=== PATIENT | male | born 1960 | race Caucasian/White ===

== ENCOUNTER 2022-07-24 13:21 | Inpatient (IN) | payer MEDICAID ==
[~2022-07-24] VITALS: Ht 185.4 cm; Wt 102.4 kg
[2022-07-24] VITALS (8 sets, daily range): BP systolic 126–148; BP diastolic 63–83
[2022-07-24] MEDS ORDERED: diphenhydrAMINE 25mg capsule PO PRN (13:55)
[2022-07-24] MEDS ORDERED: LORazepam 0.5 MG tablet PO PRN (13:55)
[2022-07-24] MEDS ORDERED: ATOR-2 PO (15:08)
[2022-07-24] MEDS ORDERED: CLOP75TA34 PO (15:08)
[2022-07-24] MEDS ORDERED: ASPI-612 PO (15:08)
[2022-07-24] MEDS: normal saline 1,000 ML IV SCH ×2 (15:19→23:50)
[2022-07-24] MEDS ORDERED: LIDOcaine 1% 30ml preserv. free vial ONE (16:38)
[2022-07-24] MEDS ORDERED: heparin 1,000unit/ml 10ml vial 10 ML ONE (16:38)
[2022-07-24] MEDS ORDERED: heparin 1,000 UNITS/NS 500ml 500 ML ONE (16:39)
[2022-07-24] MEDS ORDERED: iohexol 350MG/ML 100ml bottle IV ONE (16:39)
[2022-07-24] MEDS ORDERED: fentaNYL/PF 50MCG/1 ML 2ML syringe ONE (18:48)
[2022-07-24] MEDS ORDERED: midazolam 1 mg/ML 2ml injection ONE (18:48)
[2022-07-24] MEDS ORDERED: atropine 0.1mg/ml 10ml syringe ONE ×2 (18:57→19:44)
--- NOTE | 2022-07-24 19:54 | NUR ---
Report given to Erika COLON. All questions answered.
[2022-07-24] MEDS ORDERED: HYDROcodone/acetaminophen 5mg/325mg tablet PO PRN (20:30)
[2022-07-24] MEDS ORDERED: HYDROcodone/acetaminophen 10/325mg tab PO PRN (20:30)
[2022-07-24] MEDS ORDERED: aspirin 81mg tab.chew PO ONE (20:30)
[2022-07-25 02:00] VITALS: BP 145/94
[2022-07-25 08:00] VITALS: BP 144/81
[2022-07-25] MEDS ORDERED: atorvastatin 20mg tablet PO SCH (08:00)
[2022-07-25] MEDS ORDERED: aspirin 81mg, enteric-coated 1 TAB TABLET.DR PO SCH (08:00)
[2022-07-25] MEDS ORDERED: clopidogrel 75mg tablet PO SCH (08:00)
[2022-07-25] MEDS: normal saline 1,000 ML IV SCH (10:20)
[2022-07-25 11:00] VITALS: BP 138/84
--- NOTE | 2022-07-25 12:38 | NUR ---
Patient stable for Dc home. Discussed after care instructions and patient verbalized understanding. IV access removed and dressing in place. Transport arranged for picker tender at 1300.
== END 2022-07-25 12:57 | disposition home or self-care (01) | DRG 182 ==
LOC: SSTAY O 13:21 → PCU 3S 20:00
PROVIDERS: ADMIT Student in an Organized Health Care Education/Training Program; ATTEND Student in an Organized Health Care Education/Training Program
PROC: 047K3DZ Dilation of Right Femoral Artery with Intraluminal Device, Percutaneous Approach (ICD-10-PCS; principal; 2022-07-24)
PROC: B41D1ZZ Fluoroscopy of Aorta and Bilateral Lower Extremity Arteries using Low Osmolar Contrast (ICD-10-PCS; 2022-07-24)
DX: I70.213 Atherosclerosis of native arteries of extremities with intermittent claudication, bilateral legs (principal); E78.5 Hyperlipidemia, unspecified; Z79.899 Other long term (current) drug therapy; Z79.82 Long term (current) use of aspirin
CPT/HCPCS: 37226; 75630; 93005; 99152; 99153; A4620; A6258; C1725; C1760; C1769; C1876; C1894; G0378; J0461; J1644; J2250; J3010; J3490; J7030; Q0163; Q9967

== ENCOUNTER 2022-07-27 11:36 | Emergency (ER) | payer MEDICAID ==
[~2022-07-27] VITALS: Ht 185.4 cm; Wt 102.3 kg
[~2022-07-27 11:36] MED LIST: ASPI-612 PO; ATOR-2 PO; CLOP75TA34 PO
[2022-07-27 12:04] VITALS: BP 146/99
[2022-07-27] MEDS ORDERED: methadone 10mg tablet PO ONE (14:10)
== END 2022-07-27 14:46 | disposition home or self-care (01) ==
LOC: ER 11:36
DX: L76.22 Postprocedural hemorrhage of skin and subcutaneous tissue following other procedure (principal); Z79.82 Long term (current) use of aspirin
CPT/HCPCS: 99284

== ENCOUNTER 2022-11-27 13:24 | Day surgery (SDC) | payer MEDICAID ==
[2022-11-27] VITALS (9 sets, daily range): BP systolic 121–140; BP diastolic 68–82
[~2022-11-27] VITALS: Ht 185.4 cm; Wt 101.0 kg
[2022-11-27] MEDS ORDERED: normal saline 1,000 ML IV SCH (13:55)
[2022-11-27] MEDS ORDERED: LORazepam 0.5 MG tablet PO PRN (13:55)
[2022-11-27] MEDS ORDERED: diphenhydrAMINE 25mg capsule PO PRN (13:55)
[2022-11-27] MEDS ORDERED: heparin 1,000 UNITS/NS 500ml 500 ML ONE (18:12)
[2022-11-27] MEDS ORDERED: heparin 1,000unit/ml 10ml vial 10 ML ONE (18:12)
[2022-11-27] MEDS ORDERED: iohexol 350MG/ML 100ml bottle IV ONE (18:12)
[2022-11-27] MEDS ORDERED: LIDOcaine 1% 30ml preserv. free vial ONE (18:13)
[2022-11-27] MEDS ORDERED: midazolam 1 mg/ML 2ml injection ONE ×2 (19:20→19:49)
[2022-11-27] MEDS ORDERED: fentaNYL/PF 50MCG/1 ML 2ML syringe ONE (19:20)
[2022-11-27] MEDS ORDERED: clopidogrel 300mg tablet ONE (20:10)
--- NOTE | 2022-11-27 20:46 | NUR ---
2030 Received pt from [facility], Pt is alert and oriented, Reviewed that pt can sit up at 2130, start walking at 2145, if no hematoma or changes in vs pt may be discharged home, Pts son will pick him up, Follow up with Dr. Krishna on 12/26/22 at 0930. assessment complete.
--- NOTE | 2022-11-27 21:06 | NUR ---
Pt is alert and oriented, speech clear, thought process clear, hand support group manager equile in strength and quality. Distal pulses as charted.
--- NOTE | 2022-11-27 22:40 | NUR ---
pt sitting up in bed no hematoma, no changes in pulses, vs stable denies feelings of dizziness, SOB, numbness or tingling.
--- NOTE | 2022-11-27 23:12 | NUR ---
pt up ambulating in his room without difficulties, no changes in sheath sight , no numbness tingling or sob. discharge instructions given along with follow up care and appointment dates. pt dressed, PIV dc tip intact, Son Karthik here pt taken to pickup via W/C clothing and cell phone taken with pt.
== END 2022-11-27 23:21 | disposition home or self-care (01) ==
LOC: SSTAY O 13:24 → CICU 2S 21:03 → UNDOADMOB 21:03 → UNDODISOB 23:21 → SSTAY O 23:21
PROVIDERS: ATTEND Student in an Organized Health Care Education/Training Program
DX: I70.212 Atherosclerosis of native arteries of extremities with intermittent claudication, left leg (principal); E78.5 Hyperlipidemia, unspecified; Z79.01 Long term (current) use of anticoagulants; Z79.82 Long term (current) use of aspirin; Z79.899 Other long term (current) drug therapy
CPT/HCPCS: 37226; 75625; 75716; 93005; 99152; 99153; C1725; C1760; C1769; C1876; C1894; J1644; J2250; J3010; J3490; Q9967; 36140; A6258; G0378